=== PATIENT | male | born 1965 | race African-American/Black ===

== ENCOUNTER 2017-05-26 09:48 | Emergency (ER) | payer MEDICAID ==
[~2017-05-26] VITALS: Ht 172.7 cm; Wt 77.1 kg
[2017-05-26 10:21] VITALS: BP 134/100; Ht 172.7 cm; Wt 77.1 kg
== END 2017-05-26 11:27 | disposition home or self-care (01) ==
LOC: ED 09:48
DX: S00.83XA Contusion of other part of head, initial encounter (principal); I10 Essential (primary) hypertension; F17.210 Nicotine dependence, cigarettes, uncomplicated; W01.0XXA Fall on same level from slipping, tripping and stumbling without subsequent striking against object, initial encounter; Y93.89 Activity, other specified; Y92.89 Other specified places as the place of occurrence of the external cause; Y99.8 Other external cause status; S40.022A Contusion of left upper arm, initial encounter